=== PATIENT | female | born 1930 | race Caucasian/White ===

== ENCOUNTER → 2016-09-21 | Outpatient (CLI) | payer MEDICARE, MEDICAID | LOC: OD 12:05 | PROVIDERS: ATTEND Nurse Practitioner Acute Care | DX: S40.021A Contusion of right upper arm, initial encounter (principal); W19.XXXA Unspecified fall, initial encounter; M17.11 Unilateral primary osteoarthritis, right knee ==

== ENCOUNTER 2017-03-25 12:57 | Emergency (ER) | payer MEDICARE, MEDICAID ==
--- NOTE | 2017-03-25 13:53 | ER Document Report ---
ED Medical Screen (RME) - General Chief Complaint: Leg Swelling Stated Complaint: FALL LEFT LEG PAIN Time Seen by Provider: 03/25/17 13:38 Notes: Patient is an 86-year-old female, on Eliquis, COPD (on home 2L O2 when needed), presents with left knee pain and lower extremity swelling and bruising after she tripped over her oxygen cord and landed directly on her left knee 5 days ago. She saw the urgent care center and was sent to the ER for further evaluation. PE: Extensive ecchymosis over left lower extremity. Small skin tear over left anterior knee. Strong distal pulses. I have greeted and performed a rapid initial assessment of this patient. A comprehensive ED assessment and evaluation of the patient, analysis of test results and completion of the medical decision making process will be conducted by additional ED providers. TRAVEL OUTSIDE OF THE [place] IN LAST 30 DAYS: No - Related Data Allergies/Adverse Reactions: blue dye [Blue Dye] Allergy (Verified 03/25/17 13:04) Pruritis Past Medical History - Social History Chew tobacco use (# tins/day): No Frequency of alcohol use: None Drug Abuse: None - Past Medical History Cardiac Medical History: Reports: Hx Hypertension Pulmonary Medical History: Reports: Hx Asthma, Hx Bronchitis, Hx COPD - wears oxygen as needed Denies: Hx Pneumonia, Hx Tuberculosis Neurological Medical History: Renal/ Medical History: Denies: Hx Peritoneal Dialysis GI Medical History: Denies: Hx Hiatal Hernia Musculoskeltal Medical History: Reports Hx Arthritis - osteoarthritis, Reports Hx Muscle Weakness Infectious Medical History: Past Surgical History: Reports: Hx Pacemaker - [employer] [id number]. Denies: Hx Hysterectomy, Hx Mastectomy, Hx Open Heart Surgery Physical Exam - Vital signs Vitals: Temp Pulse Resp BP Pulse Ox 98.5 F 67 16 140/80 H 91 L 03/25/17 13:01 03/25/17 13:01 03/25/17 13:01 03/25/17 13:01 03/25/17 13:01 Course - Vital Signs Vital signs: Temp Pulse Resp BP Pulse Ox 98.5 F 67 16 140/80 H 91 L 03/25/17 13:01 03/25/17 13:01 03/25/17 13:01 03/25/17 13:01 03/25/17 13:01
--- NOTE | 2017-03-25 14:41 | RADIOLOGY REPORT (SQ) ---
EXAM DESCRIPTION: KNEE LEFT 3 VIEWS COMPLETED DATE/TIME: 03/25/2017 2:27 pm REASON FOR STUDY: fall COMPARISON: 09/21/2016 NUMBER OF VIEWS: Three views. TECHNIQUE: AP, lateral, and sunrise patella radiographic images acquired of the left knee. LIMITATIONS: None. FINDINGS: MINERALIZATION: Normal. BONES: No acute fracture or dislocation. No worrisome bone lesions. JOINT: There is a tiny posterior patellar spur. There is a small joint effusion. SOFT TISSUES: No soft tissue swelling. No radio-opaque foreign body. OTHER: No other significant finding. IMPRESSION: Mild patellofemoral degenerative joint changes with a small joint effusion. No acute os seous abnormality is present. TECHNICAL DOCUMENTATION: JOB ID: [id number] [employer]- All Rights Reserved
--- NOTE | 2017-03-25 14:42 | RADIOLOGY REPORT (SQ) ---
EXAM DESCRIPTION: TIBIA FIBULA LEFT COMPLETED DATE/TIME: 03/25/2017 2:27 pm REASON FOR STUDY: fall COMPARISON: None. NUMBER OF VIEWS: Two views. TECHNIQUE: Two radiographic images acquired of the left tibia and fibula to include the knee and ank le in at least one projection. LIMITATIONS: None. FINDINGS: MINERALIZATION: Osteopenia. BONES: No acute fracture or dislocation. No worrisome bone lesions. SOFT TISSUES: No obvious swelling or foreign body. OTHER: Screws are present in the distal tibia. IMPRESSION: NEGATIVE STUDY OF THE LEFT TIBIA AND FIBULA. NO RADIOGRAPHIC EVIDENCE OF ACUTE INJURY. TECHNICAL DOCUMENTATION: JOB ID: [id number] [employer]- All Rights Reserved
--- NOTE | 2017-03-25 15:13 | ER Document Report ---
ED General - General Chief Complaint: Leg Swelling Stated Complaint: FALL LEFT LEG PAIN Time Seen by Provider: 03/25/17 13:38 Mode of Arrival: Ambulatory Information source: Patient Notes: 86-year-old female on Eliquis presents with complaints of left leg bruising. Patient notes she fell on her knee and since then has had bruising and the leg is swollen. Patient notes she is able to ambulate denies any significant pain with ambulation. She denies any other concerns TRAVEL OUTSIDE OF THE [place] IN LAST 30 DAYS: No - Related Data Allergies/Adverse Reactions: blue dye [Blue Dye] Allergy (Verified 03/25/17 13:04) Pruritis Past Medical History - Social History Smoking Status: Never Smoker Cigarette use (# per day): No Chew tobacco use (# tins/day): No Smoking Education Provided: No Frequency of alcohol use: None Drug Abuse: None Family History: Reviewed & Not Pertinent Patient has suicidal ideation: No Patient has homicidal ideation: No - Past Medical History Cardiac Medical History: Reports: Hx Hypertension Pulmonary Medical History: Reports: Hx Asthma, Hx Bronchitis, Hx COPD - wears oxygen as needed Denies: Hx Pneumonia, Hx Tuberculosis Neurological Medical History: Renal/ Medical History: Denies: Hx Peritoneal Dialysis GI Medical History: Denies: Hx Hiatal Hernia Musculoskeltal Medical History: Reports Hx Arthritis - osteoarthritis, Reports Hx Muscle Weakness Infectious Medical History: Past Surgical History: Reports: Hx Pacemaker - [employer] [id number]. Denies: Hx Hysterectomy, Hx Mastectomy, Hx Open Heart Surgery Review of Systems - Review of Systems Notes: REVIEW OF SYSTEMS: CONSTITUTIONAL : Denies fever, chills, or sweats. Denies recent illness. EENT: Denies eye, ear, throat, or mouth pain or symptoms. Denies nasal or sinus congestion or discharge. Denies throat, tongue, or mouth swelling or difficulty swallowing. CARDIOVASCULAR: Denies chest pain. Denies palpitations or racing or irregular heart beat. Denies ankle edema. RESPIRATORY: Denies cough, cold, or chest congestion. Denies shortness of breath, difficulty breathing, or wheezing. GASTROINTESTINAL: Denies abdominal pain or distention. Denies nausea, vomiting , or diarrhea. Denies blood in vomitus, stools, or per rectum. Denies black, tarry stools. Denies constipation. GENITOURINARY: Denies difficulty urinating, painful urination, burning, frequency, blood in urine, or discharge. FEMALE GENITOURINARY: Denies vaginal bleeding, heavy or abnormal periods, irregular periods. Denies vaginal discharge or odor. MUSCULOSKELETAL: left knee swelling SKIN: bruising HEMATOLOGIC : Denies easy bruising or bleeding. LYMPHATIC: Denies swollen, enlarged glands. NEUROLOGICAL: Denies confusion or altered mental status. Denies passing out or loss of consciousness. Denies dizziness or lightheadedness. Denies headache. Denies weakness or paralysis or loss of use of either side. Denies problems with gait or speech. Denies sensory loss, numbness, or tingling. Denies seizures. PSYCHIATRIC: Denies anxiety or stress. Denies depression, suicidal ideation, or homicidal ideation. ALL OTHER SYSTEMS REVIEWED AND NEGATIVE. PHYSICAL EXAMINATION: GENERAL: Well-appearing, well-nourished and in no acute distress. HEAD: Atraumatic, normocephalic. EYES: Pupils equal round and reactive to light, extraocular movements intact, conjunctiva are normal. ENT: Nares patent, oropharynx clear without exudates. Moist mucous membranes. NECK: Normal range of motion, supple without lymphadenopathy LUNGS: Breath sounds clear to auscultation bilaterally and equal. No wheezes rales or rhonchi. HEART: Regular rate and rhythm without murmurs ABDOMEN: Soft, nontender, nondistended abdomen. No guarding, no rebound. No masses appreciated. Female : deferred Musculoskeletal: Ecchymosis of the left knee tender in the medial aspect effusion noted NEUROLOGICAL: Cranial nerves grossly intact. Normal speech, normal gait. Normal sensory, motor exams PSYCH: Normal mood, normal affect. SKIN: Ecchymosis from mid thigh to the left foot pulses intact sensation intact motor function intact Dictation was performed using [employer] voice recognition software Physical Exam - Vital signs Vitals: Temp Pulse Resp BP Pulse Ox 98.5 F 67 16 140/80 H 91 L 03/25/17 13:01 03/25/17 13:01 03/25/17 13:01 03/25/17 13:01 03/25/17 13:01 Course - Re-evaluation Re-evalutation: 03/25/17 23:55 X-rays consistent with a small effusion, patient otherwise looks well is in no distress, patient was evaluated and there is no signs of a blood clot in fact the patient's blood is thin and I believe her traumatic injury has caused her this ecchymosis. 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 Patient otherwise is in no distress will be given follow-up very strict return precautions.. After performing a Medical Screening Examination, I estimate there is LOW risk for INTRACRANIAL HEMORRHAGE, UNSTABLE SPINE FRACTURE, CENTRAL CORD SYNDROME, CAUDA EQUINA, THORACIC AORTIC DISSECTION, PNEUMOTHORAX, PERFORATED BOWEL, RUPTURED ABDOMINAL AORTIC ANEURYSM, ACUTE TENDON RUPTURE, COMPARTMENT SYNDROME, or OPEN FRACTURE, thus I consider the discharge disposition reasonable. Also, there is no evidence or peritonitis, sepsis, or toxicity. I have reevaluated this patient multiple times and no significant life threatening changes are noted. The patient and I have discussed the diagnosis and risks, and we agree with discharging home to follow-up with their primary doctor with the understanding that symptoms and presentations can change. We also discussed returning to the Emergency Department immediately if new or worsening symptoms occur. We have discussed the symptoms which are most concerning (e.g., bloody stool, fever, changing or worsening pain, vomiting) that necessitate immediate return. - Vital Signs Vital signs: Temp Pulse Resp BP Pulse Ox 97.7 F 62 20 132/75 H 92 03/25/17 15:52 03/25/17 15:52 03/25/17 15:52 03/25/17 15:52 03/25/17 15:52 - Diagnostic Test Radiology reviewed: Image reviewed, Reports reviewed - Small effusion Discharge - Discharge Clinical Impression: Knee effusion, left Traumatic ecchymosis of left lower leg Qualifiers: Encounter type: initial encounter Qualified Code(s): S80.12XA - Contusion of left lower leg, initial encounter Condition: Stable Disposition: HOME, SELF-CARE Instructions: Knee Effusion ([facility]) Referrals: FARA CADET NP [Primary Care Provider] - Follow up as needed CHRISTI LI MD [ACTIVE STAFF] - Follow up tomorrow
[2017-03-25 15:54] VITALS: BP 132/75
== END 2017-03-25 15:52 | disposition home or self-care (01) ==
LOC: ER 12:57
DX: S80.12XA Contusion of left lower leg, initial encounter (principal); M25.462 Effusion, left knee; W18.30XA Fall on same level, unspecified, initial encounter; I10 Essential (primary) hypertension
CPT/HCPCS: 99283

== ENCOUNTER 2018-08-24 09:06 | Day surgery (SDC) | payer MEDICARE, MEDICAID ==
[~2018-08-24 09:06] MED LIST: CHONDR SU A NA/HYALUR INTRAOC KIT (SURGICARE) ONE; EPINEPHRINE INJ/PF 1 MG/1 ML AMPULE ONE; KETOROLAC TROMETHAMINE 0.45% 4 DROP/0.4 ML DROPERETTE OD PRN; LIDOCAINE 1% INJ-PF (10 MG/ML) 30 ML SDV ONE
[2018-08-24] MEDS: TETRACAINE HCL 0.5% OPH SOLN 0.6 ML DROPERETTE OD PRN ×3 (09:40→10:19)
[2018-08-24] MEDS: TROPICAMIDE 1% OPH SOLN 3 ML OD PRN ×3 (09:41→10:05)
[2018-08-24] MEDS: BESIFLOXACIN HCL 0.6% OPH SUSP 5 ML BOTTLE OD PRN ×4 (09:41→10:46)
[2018-08-24] MEDS: CYCLOPENTOLATE 0.2%/PHENYLEPHRINE 1% OPH SOLN 2 ML OD PRN ×3 (09:41→10:05)
[2018-08-24] MEDS ORDERED: MIDAZOLAM 2 MG/2 ML INJ ONE (09:53)
[2018-08-24] MEDS: TOBRAMYCIN SULFATE/DEXAMETH OPH OINTMENT 3.5 GM ONE ×2 (10:46)
== END 2018-08-24 11:41 | disposition home or self-care (01) ==
LOC: SC 09:06
PROVIDERS: ATTEND Ophthalmology
DX: H25.11 Age-related nuclear cataract, right eye (principal); I25.10 Atherosclerotic heart disease of native coronary artery without angina pectoris; E11.9 Type 2 diabetes mellitus without complications; K21.9 Gastro-esophageal reflux disease without esophagitis; I10 Essential (primary) hypertension; E78.00 Pure hypercholesterolemia, unspecified; J44.9 Chronic obstructive pulmonary disease, unspecified; Z95.0 Presence of cardiac pacemaker; Z79.84 Long term (current) use of oral hypoglycemic drugs; Z79.01 Long term (current) use of anticoagulants; Z79.899 Other long term (current) drug therapy
CPT/HCPCS: 82962; 66984; V2632; J2250; J3490 ×3; A9270; J0171; 142

== ENCOUNTER 2018-09-14 10:23 | Day surgery (SDC) | payer MEDICARE, MEDICAID ==
[~2018-09-14 10:23] MED LIST changes: +BESIFLOXACIN HCL 0.6% OPH SUSP 5 ML BOTTLE OS PRN; -CHONDR SU A NA/HYALUR INTRAOC KIT (SURGICARE) ONE; +CYCLOPENTOLATE 0.2%/PHENYLEPHRINE 1% OPH SOLN 2 ML OS PRN; -EPINEPHRINE INJ/PF 1 MG/1 ML AMPULE ONE; -KETOROLAC TROMETHAMINE 0.45% 4 DROP/0.4 ML DROPERETTE OD PRN; +KETOROLAC TROMETHAMINE 0.45% 4 DROP/0.4 ML DROPERETTE OS PRN; -LIDOCAINE 1% INJ-PF (10 MG/ML) 30 ML SDV ONE; +TETRACAINE HCL 0.5% OPH SOLN 0.6 ML DROPERETTE OS PRN; +TROPICAMIDE 1% OPH SOLN 3 ML OS PRN
[2018-09-14] MEDS ORDERED: MIDAZOLAM 2 MG/2 ML INJ ONE (11:01)
[2018-09-14] MEDS: TROPICAMIDE 1% OPH SOLN 3 ML OS PRN ×3 (11:38→12:00)
[2018-09-14] MEDS: BESIFLOXACIN HCL 0.6% OPH SUSP 5 ML BOTTLE OS PRN ×4 (11:38→12:50)
[2018-09-14] MEDS: CYCLOPENTOLATE 0.2%/PHENYLEPHRINE 1% OPH SOLN 2 ML OS PRN ×3 (11:38→12:00)
[2018-09-14] MEDS: TETRACAINE HCL 0.5% OPH SOLN 0.6 ML DROPERETTE OS PRN ×4 (11:38→12:22)
[2018-09-14] MEDS: LIDOCAINE 1% INJ-PF (10 MG/ML) 30 ML SDV ONE ×2 (12:41)
[2018-09-14] MEDS: CHONDR SU A NA/HYALUR INTRAOC KIT (SURGICARE) ONE ×2 (12:41)
[2018-09-14] MEDS: EPINEPHRINE INJ/PF 1 MG/1 ML AMPULE ONE ×2 (12:41)
[2018-09-14] MEDS: TOBRAMYCIN SULFATE/DEXAMETH OPH OINTMENT 3.5 GM ONE ×2 (12:50)
== END 2018-09-14 13:42 | disposition home or self-care (01) ==
LOC: SC 10:23
PROVIDERS: ATTEND Ophthalmology
DX: H25.12 Age-related nuclear cataract, left eye (principal); Z98.41 Cataract extraction status, right eye; I25.10 Atherosclerotic heart disease of native coronary artery without angina pectoris; E11.9 Type 2 diabetes mellitus without complications; J45.909 Unspecified asthma, uncomplicated; E78.00 Pure hypercholesterolemia, unspecified; I10 Essential (primary) hypertension; Z79.01 Long term (current) use of anticoagulants; Z79.899 Other long term (current) drug therapy; I49.9 Cardiac arrhythmia, unspecified; Z95.0 Presence of cardiac pacemaker
CPT/HCPCS: 66984; 82962; V2632; J2250; J3490 ×3; A9270; J0171; 142

== ENCOUNTER 2019-05-22 20:19 | Emergency (ER) | payer MEDICARE, MEDICAID ==
[2019-05-22 21:01] LABS: APPEARANCE,URINE CLEAR; BILIRUBIN,URINE NEGATIVE (NEGATIVE); COLOR,URINE YELLOW; GLUCOSE, URINE NEGATIVE (NEGATIVE); KETONES,URINE NEGATIVE (NEGATIVE); LEUKOCYTE ESTERASE,URINE NEGATIVE (NEGATIVE); NITRITE,URINE NEGATIVE (NEGATIVE); PROTEIN,URINE 30 mg/dL (NEGATIVE); URINE SPECIFIC GRAVITY 1.019
[2019-05-22 21:02] LABS: ABSOLUTE LYMPHOCYTES (AUTO) 0.8 10^3/uL (0.5-4.7); ABSOLUTE MONOCYTES (AUTO) 0.7 10^3/uL (0.1-1.4); ABSOLUTE NEUT (AUTO) 3.4 10^3/uL (1.7-8.2); BASOPHILS % (AUTO) 0.7 % (0-2); EOSINOPHILS % (AUTO) 0.6 % (0-6); HEMATOCRIT 36.2 % (36.0-47.0); HEMOGLOBIN 11.4 g/dL (12.0-15.5); LYMPHOCYTES % (AUTO) 16.5 % (13-45); MEAN CORPUSCULAR HGB CONC 31.3 g/dL (32.0-36.0); MEAN CORPUSCULAR VOLUME 74 fl (80-97); MONOCYTES % (AUTO) 13.3 % (3-13); RED BLOOD COUNT 4.93 10^6/uL (3.72-5.28); RED CELL DISTRIBUTION WIDTH 18.7 % (11.5-14.0); SEGMENTED NEUTROPHILS % (AUTO) 68.9 % (42-78); TOTAL CELLS COUNTED % (AUTO) 100 %; WHITE BLOOD COUNT 4.9 10^3/uL (4.0-10.5)
[2019-05-22 21:04] LABS: PLATELET COUNT 98 10^3/uL (150-450)
[2019-05-22 21:22] LABS: ALBUMIN 4.1 g/dL (3.5-5.0); ALKALINE PHOSPHATASE 44 U/L (38-126); ANION GAP 8 (5-19); ASPARTATE AMINO TRANSFERASE 30 U/L (14-36); BILIRUBIN,DIRECT 0.3 mg/dL (0.0-0.4); BILIRUBIN,TOTAL 0.7 mg/dL (0.2-1.3); BLOOD UREA NITROGEN 28 mg/dL (7-20); CALCIUM 9.4 mg/dL (8.4-10.2); CARBON DIOXIDE 30 mmol/L (22-30); CHLORIDE 103 mmol/L (98-107); GLUCOSE 93 mg/dL (75-110); TOTAL PROTEIN 7.1 g/dL (6.3-8.2)
--- NOTE | 2019-05-22 22:26 | RADIOLOGY REPORT (SQ) ---
EXAM DESCRIPTION: CT HEAD WITHOUT IV CONTRAST COMPLETED DATE/TME: 05/22/2019 00:00 CLINICAL HISTORY: 89 years, Female, ams COMPARISON: None. TECHNIQUE: Noncontrast CT of head was performed. Coronal and sagittal reformations were created. Images stored on PACS. All CT scanners at this facility use dose modulation, iterative reconstruction, and/or weight based dosing when appropriate to reduce radiation dose to as low as reasonably achievable (ALARA). [facility]: Dose Right [facility]: CareDose [facility]: Dose Right [facility]: Teradose 4D [facility]: [employer] LIMITATIONS: None. FINDINGS: Evaluation of the brain parenchyma reveals mild periventricular and patchy subcortical white matter low attenuation. A more focal area of hypodensity is noted about the anterior limb of the left internal capsule. This presumably corresponds to a remote lacunar infarct. Ventricles and sulcal spaces are mildly enlarged. No acute intracranial hemorrhage, mass effect, or extra-axial fluid is seen. Rounded opacities are noted about both maxillary antra, indicating mucous retention cysts and/or inflammatory polyps. There is mild opacity within the right ethmoidal air cells posteriorly. Mastoid air cells are clear. Calcifications are evident about the bilateral parasellar carotid arteries. No depressed skull fractures. IMPRESSION: No acute intracranial abnormality. Mild chronic microvascular ischemic change with generalized atrophy. Suspect remote lacunar infarct within the anterior limb of the left internal capsule. TECHNICAL DOCUMENTATION: Quality ID # [id number]: Final reports with documentation of one or more dose reduction techniques (e.g., Automated exposure control, adjustment of the mA and/or kV according to patient size, use of iterative reconstruction technique) copyright 2011 [employer]- All Rights Reserved
--- NOTE | 2019-05-22 23:12 | ER Document Report ---
ED General - General Chief Complaint: Altered Mental Status Stated Complaint: ALTERED MENTAL STATUS Time Seen by Provider: 05/22/19 23:08 Primary Care Provider: FARA CADET NP [Primary Care Provider] - Follow up as needed Mode of Arrival: Ambulatory Information source: Patient, Relative TRAVEL OUTSIDE OF THE [place] IN LAST 30 DAYS: No - HPI Onset: Other - over the last month Onset/Duration: Gradual Quality of pain: No pain Severity: Moderate Pain Level: Denies Associated symptoms: None Exacerbated by: Denies Relieved by: Denies Similar symptoms previously: No Recently seen / treated by doctor: No Notes: 89 year old female with a history of HTN who has a pacemaker brought to the ER for worsening confusion over the last month. The patient has no complaints when she is asked herself and the only reason she is in the ER is because her family wanted her to be seen. The patient and family deny recent head trauma or falls. The patient's family feel the patient's mental status has worsened even more in the last day or two. - Related Data Allergies/Adverse Reactions: blue dye [Blue Dye] Allergy (Verified 09/09/18 10:11) Pruritis Home Medications: Lasix. Eliquis. Potassium. Pantoprazole. Lisinopril Past Medical History - General Information source: Patient, Relative Cannot obtain history due to: Altered mental status - Social History Smoking Status: Never Smoker Frequency of alcohol use: None Drug Abuse: None Family History: Reviewed & Not Pertinent Patient has suicidal ideation: No Patient has homicidal ideation: No - Past Medical History Cardiac Medical History: Reports: Hx Hypertension Denies: Hx Heart Attack Pulmonary Medical History: Reports: Hx Asthma - CHF, Hx Bronchitis, Hx COPD - wears oxygen as needed Denies: Hx Pneumonia, Hx Tuberculosis Neurological Medical History: Denies: Hx Cerebrovascular Accident, Hx Seizures Renal/ Medical History: Denies: Hx Peritoneal Dialysis GI Medical History: Denies: Hx Hepatitis, Hx Hiatal Hernia, Hx Ulcer Musculoskeletal Medical History: Reports Hx Arthritis - osteoarthritis, Reports Hx Muscle Weakness Infectious Medical History: Denies: Hx Hepatitis Past Surgical History: Reports: Hx Pacemaker. Denies: Hx Hysterectomy, Hx Mastectomy, Hx Open Heart Surgery Physical Exam - Vital signs Vitals: Resp 05/22/19 20:24 - Notes Notes: GENERAL: Well-appearing, well-nourished and in no acute distress. HEAD: Atraumatic, normocephalic. EYES: Pupils equal round and reactive to light, extraocular movements intact, sclera anicteric, conjunctiva are normal. ENT: TMs normal, nares patent, oropharynx clear without exudates. Moist mucous membranes. NECK: Normal range of motion, supple without lymphadenopathy or JVD. LUNGS: Breath sounds clear to auscultation bilaterally and equal. No wheezes rales or rhonchi. HEART: Regular rate and rhythm without murmurs, rubs or gallops. ABDOMEN: Soft, nontender, normoactive bowel sounds. No guarding, no rebound. No masses appreciated. EXTREMITIES: Normal range of motion, no pitting or edema. No clubbing or cyanosis. NEUROLOGICAL: Cranial nerves II through XII grossly intact. Normal speech, n ormal gait. Patient is somewhat confused and is only oriented to person and plan. PSYCH: Normal mood, normal affect. SKIN: Warm, Dry, normal turgor, no rashes or lesions noted. Course - Re-evaluation Re-evalutation: 05/23/19 02:44 The patient's family brought the patient to the ER for evaluation of 1 month of worsening confusion. The patient likely has vascular dementia as a cause of her confusion. Blood work, UA, Chest Xray, CT Head all are unremarkable. Patient and family told to follow up with their PCP for further work up and treatment of likely Dementia. The patient's blood pressure is elevated here in the ER. The patient is on BP meds at home. Patient given hydralazine in the ER for acute on chronic hypertension. Family told to have the patient follow up with her PCP for better management of her HTN 05/23/19 02:51 - Vital Signs Vital signs: Temp Pulse Resp BP Pulse Ox 100.1 F 20 196/80 H 97 05/22/19 20:40 05/23/19 02:01 05/23/19 02:01 05/23/19 02:01 - Laboratory Result Diagrams: 05/22/19 20:35 05/22/19 20:35 Laboratory results interpreted by me: 05/22/19 05/22/19 05/22/19 20:35 20:35 20:35 Hgb 11.4 L MCV 74 L MCH 23.0 L MCHC 31.3 L RDW 18.7 H Plt Count 98 L [place] % (Auto) 13.3 H BUN 28 H Est GFR ( Amer) 53 L Est GFR (MDRD) Non-Af 44 L TSH Urine Protein 30 H Urine Urobilinogen 4.0 H 05/22/19 20:35 Hgb MCV MCH MCHC RDW Plt Count [place] % (Auto) BUN Est GFR ( Amer) Est GFR (MDRD) Non-Af TSH 0.26 L Urine Protein Urine Urobilinogen Discharge - Discharge Clinical Impression: Dementia Qualifiers: Dementia type: unspecified type Dementia behavioral disturbance: without behavioral disturbance Qualified Code(s): F03.90 - Unspecified dementia without behavioral disturbance Hypertension Qualifiers: Hypertension type: essential hypertension Qualified Code(s): I10 - Essential (primary) hypertension Condition: Stable Disposition: HOME, SELF-CARE Instructions: Dementia ([facility]) Additional Instructions: Follow up with your primary care doctor as soon as you can and discuss with him/her your confusion, hypertension, and your ER visit. Tell your doctor you had blood work, a Urine Analysis, a Chest Xray, and a Head CT Scan all of which showed no acute abnormalities. Referrals: FARA CADET NP [Primary Care Provider] - Follow up as needed
--- NOTE | 2019-05-23 01:20 | RADIOLOGY REPORT (SQ) ---
EXAM DESCRIPTION: [facility]: XR CHEST 2 VIEWS Views: 2 CLINICAL HISTORY: 89 years Female, rule out pneumonia COMPARISON: 2015 FINDINGS: There is mild central interstitial prominence, but no focal infiltrate. No pneumothorax or pleural effusion. Pacemaker is again noted, with intact leads. Mild aortic calcification. No superior mediastinal widening or shift. Heart size is at the upper limits of normal. Bony structures are unremarkable for age. IMPRESSION: 1. Mild pulmonary vascular congestion 2. No focal infiltrates 3. Pacemaker
[2019-05-23 02:35] VITALS: BP 196/80
[2019-05-23] MEDS ORDERED: HYDRALAZINE HCL INJ/PF 20 MG/1 ML SDV IV ONE (02:47)
--- NOTE | 2019-05-23 11:21 | EKG REPORT ---
SEVERITY:- ABNORMAL ECG - AFIB/FLUTTER AND VENTRICULAR-PACED RHYTHM : Confirmed by: Diane Montejo MD 23-May-2019 11:20:48
== END 2019-05-23 03:26 | disposition home or self-care (01) ==
LOC: ER 20:19
DX: F03.90 Unspecified dementia, unspecified severity, without behavioral disturbance, psychotic disturbance, mood disturbance, and anxiety (principal); I10 Essential (primary) hypertension; J44.9 Chronic obstructive pulmonary disease, unspecified; I50.9 Heart failure, unspecified; Z99.81 Dependence on supplemental oxygen
CPT/HCPCS: 93005; 99285; 96374; 36415; 84443; 85025; 80053; 81001; 71046; 70450; 93010; J0360

== ENCOUNTER 2019-10-09 13:55 | Emergency (ER) | payer MEDICARE, MEDICAID ==
--- NOTE | 2019-10-09 14:09 | ER Document Report ---
ED Medical Screen (RME) - General Chief Complaint: Leg Swelling Stated Complaint: LEG SWELLING Time Seen by Provider: 10/09/19 14:04 Primary Care Provider: ZAINA DONIS PA-C [Primary Care Provider] - Follow up as needed Mode of Arrival: Wheelchair Information source: Patient, Relative - Daughter Notes: 89-year-old female patient with history of dementia and hearing impairment presents to the emergency department with her daughter. Patient has edema and weeping to her bilateral lower extremities. She also has generally not felt well and had some confusion yesterday. The daughter also reports she fell about 2 weeks ago and hit her head, she did not get seen for this as they were too scared to come to the emergency department due to COVID-19. Patient has not had any travel, has not had any exposure to any COVID-19 positive persons. Swelling noted to bilateral lower extremities, areas of erythema noted, weeping noted. I have greeted and performed a rapid initial assessment of this patient. A comprehensive ED assessment and evaluation of the patient, analysis of test results and completion of the medical decision making process will be conducted by additional ED providers. I have specifically instructed the patient or family members with the patient to immediately return to any nursing staff should anything change in the patient's condition or with their chief complaint. TRAVEL OUTSIDE OF THE [place] IN LAST 30 DAYS: No - Related Data Allergies/Adverse Reactions: blue dye [Blue Dye] Allergy (Verified 09/09/18 10:11) Pruritis Past Medical History - Past Medical History Cardiac Medical History: Reports: Hx Hypertension Denies: Hx Heart Attack Pulmonary Medical History: Reports: Hx Asthma - CHF, Hx Bronchitis, Hx COPD - wears oxygen as needed Denies: Hx Pneumonia, Hx Tuberculosis Neurological Medical History: Denies: Hx Cerebrovascular Accident, Hx Seizures Renal/ Medical History: Denies: Hx Peritoneal Dialysis GI Medical History: Denies: Hx Hepatitis, Hx Hiatal Hernia, Hx Ulcer Musculoskeltal Medical History: Reports Hx Arthritis - osteoarthritis, Reports Hx Muscle Weakness Infectious Medical History: Denies: Hx Hepatitis Past Surgical History: Reports: Hx Pacemaker. Denies: Hx Hysterectomy, Hx Mastectomy, Hx Open Heart Surgery Physical Exam - Vital signs Vitals: Temp Pulse Resp BP Pulse Ox 98.3 F 64 18 187/94 H 94 10/09/19 14:01 10/09/19 14:01 10/09/19 14:01 10/09/19 14:01 10/09/19 14:01 Course - Vital Signs Vital signs: Temp Pulse Resp BP Pulse Ox 98.3 F 64 18 187/94 H 94 10/09/19 14:01 10/09/19 14:01 10/09/19 14:01 10/09/19 14:01 10/09/19 14:01 Doctor's Discharge - Discharge Referrals: ZAINA DONIS PA-C [Primary Care Provider] - Follow up as needed
[2019-10-09] MEDS ORDERED: FUROSEMIDE INJ/PF 40 MG/4 ML SDV IV ONE (14:29)
[2019-10-09 14:53] LABS: APPEARANCE,URINE CLEAR; BILIRUBIN,URINE NEGATIVE (NEGATIVE); COLOR,URINE YELLOW; GLUCOSE, URINE NEGATIVE (NEGATIVE); KETONES,URINE NEGATIVE (NEGATIVE); LEUKOCYTE ESTERASE,URINE NEGATIVE (NEGATIVE); NITRITE,URINE NEGATIVE (NEGATIVE); PROTEIN,URINE 30 mg/dL (NEGATIVE); URINE SPECIFIC GRAVITY 1.013
--- NOTE | 2019-10-09 14:55 | RADIOLOGY REPORT (SQ) ---
EXAM DESCRIPTION: CHEST SINGLE VIEW IMAGES COMPLETED DATE/TIME: 10/09/2019 2:36 pm REASON FOR STUDY: peripheral edema, not feeling well COMPARISON: PA and lateral views of the chest from 05/23/2019. EXAM PARAMETERS: NUMBER OF VIEWS: One view. TECHNIQUE: An AP view of the chest was obtained. RADIATION DOSE: NA LIMITATIONS: None. FINDINGS: LUNGS AND PLEURA: The right lateral costophrenic sulcus is blunted. There is no consolida tion or pneumothorax. MEDIASTINUM AND HILAR STRUCTURES: No mediastinal or hilar contour abnormality. HEART AND VASCULAR STRUCTURES: Unchanged cardiomegaly. The pulmonary vasculature is within normal li mits given the low inspiratory lung volumes. BONES: Osteoarthrosis of the bilateral glenohumeral joints. HARDWARE: Intact left subclavian vein approach transvenous pacemaker. OTHER: No other finding. IMPRESSION: Cardiomegaly and trace left pleural effusion. TECHNICAL DOCUMENTATION: JOB ID: [id number] 2010 [employer]- All Rights Reserved Reading location - IP/workstation name: [email or web address]
[2019-10-09 15:05] LABS: ABSOLUTE BASOPHILS # (AUTO) 0.1 10^3/uL (0.0-0.2); ABSOLUTE LYMPHOCYTES (AUTO) 0.9 10^3/uL (0.5-4.7); ABSOLUTE MONOCYTES (AUTO) 0.8 10^3/uL (0.1-1.4); ABSOLUTE NEUT (AUTO) 6.7 10^3/uL (1.7-8.2); BASOPHILS % (AUTO) 0.8 % (0-2); EOSINOPHILS % (AUTO) 0.2 % (0-6); HEMATOCRIT 33.1 % (36.0-47.0); HEMOGLOBIN 10.2 g/dL (12.0-15.5); LYMPHOCYTES % (AUTO) 10.5 % (13-45); MEAN CORPUSCULAR HEMOGLOBIN 22.1 pg (27.0-33.4); MEAN CORPUSCULAR HGB CONC 30.7 g/dL (32.0-36.0); MEAN CORPUSCULAR VOLUME 72 fl (80-97); MONOCYTES % (AUTO) 9.7 % (3-13); PLATELET COUNT 120 10^3/uL (150-450); RED CELL DISTRIBUTION WIDTH 17.4 % (11.5-14.0); SEGMENTED NEUTROPHILS % (AUTO) 78.8 % (42-78); TOTAL CELLS COUNTED % (AUTO) 100 %; WHITE BLOOD COUNT 8.5 10^3/uL (4.0-10.5)
--- NOTE | 2019-10-09 15:07 | ER Document Report ---
ED Extremity Problem, Lower - General Chief Complaint: Leg Swelling Stated Complaint: LEG SWELLING Time Seen by Provider: 10/09/19 14:04 Primary Care Provider: ZAINA DONIS PA-C [COMMUNITY BASED STAFF] - Follow up as needed Mode of Arrival: Wheelchair Information source: Patient, Relative TRAVEL OUTSIDE OF THE [place] IN LAST 30 DAYS: No - HPI Notes: Patient is brought in by family for leg and face swelling. This is been going on for 1 to 2 days. Nothing makes it better or worse. There is no significant radiation of the symptoms. Symptoms have been constant. She states that her legs have been weeping clear fluid and sometimes blood. Family states that they noticed today the face is also started to swell. She is also had some weakness and shortness of breath especially with exertion. No chest pain. No abdominal pain. No vomiting diarrhea. No cough or fevers. - Related Data Allergies/Adverse Reactions: blue dye [Blue Dye] Allergy (Verified 09/09/18 10:11) Pruritis Past Medical History - General Information source: Patient, Relative - Daughter - Social History Smoking Status: Never Smoker Frequency of alcohol use: None Drug Abuse: None Family History: Reviewed & Not Pertinent Patient has homicidal ideation: No - Past Medical History Cardiac Medical History: Reports: Hx Hypertension Denies: Hx Heart Attack Pulmonary Medical History: Reports: Hx Asthma - CHF, Hx Bronchitis, Hx COPD - wears oxygen as needed Denies: Hx Pneumonia, Hx Tuberculosis Neurological Medical History: Denies: Hx Cerebrovascular Accident, Hx Seizures Renal/ Medical History: Denies: Hx Peritoneal Dialysis GI Medical History: Denies: Hx Hepatitis, Hx Hiatal Hernia, Hx Ulcer Musculoskeletal Medical History: Reports Hx Arthritis - osteoarthritis, Reports Hx Muscle Weakness Infectious Medical History: Denies: Hx Hepatitis Past Surgical History: Reports: Hx Pacemaker. Denies: Hx Hysterectomy, Hx Mastectomy, Hx Open Heart Surgery Review of Systems - Review of Systems -: Yes ROS unobtainable due to patient's medical condition - Review of symptoms are not obtainable due to patient's chronic dementia Physical Exam - Vital signs Vitals: Temp Pulse Resp BP Pulse Ox 98.3 F 64 18 187/94 H 94 10/09/19 14:01 10/09/19 14:01 10/09/19 14:01 10/09/19 14:01 10/09/19 14:01 Interpretation: Hypertensive - General General appearance: Appears well, Alert In distress: None - HEENT Head: Normocephalic, Atraumatic Eyes: Normal Pupils: PERRL - Respiratory Respiratory status: No respiratory distress Chest status: Nontender Breath sounds: Decreased air movement Chest palpation: Normal - Cardiovascular Rhythm: Regular Heart sounds: Normal auscultation Murmur: No - Abdominal Inspection: Normal Distension: No distension Bowel sounds: Normal Tenderness: Nontender Organomegaly: No organomegaly - Back Back: Normal, Nontender - Extremities General upper extremity: Normal inspection, Nontender, Normal color, Normal ROM, Normal temperature General lower extremity: Tender, Edema - Bilateral lower extremities 2+, Normal weight bearing. No: Prakash's sign - Neurological Cognition: Confused Orientation: Disoriented to time Clayton Coma Scale Eye Opening: Spontaneous Debra Coma Scale Verbal: Confused Clayton Coma Scale Motor: Obeys Commands Clayton Coma Scale Total: 14 Speech: Normal - Psychological Associated symptoms: Normal affect, Normal mood - Skin Skin Temperature: Warm Skin Moisture: Dry Skin Color: Normal Course - Re-evaluation Re-evalutation: 10/09/19 16:30 Patient presents with leg swelling and also facial swelling per family. Laboratories are consistent with some mild to moderate fluid overload secondary to congestive heart failure. I do not feel that it is to the degree the patient requires admission to the hospital. I will give the patient a dose of IV Lasix and send her home with instructions to increase her Lasix and follow-up with her family physician in the next 1 to 2 days. Patient is otherwise stable. She is vital signs that are stable. She has no labored breathing. During during this COVID pandemic, It seems most prudent to have the patient try increasing her diuretic at home and following up with her primary care physician. - Vital Signs Vital signs: Temp Pulse Resp BP Pulse Ox 98.3 F 64 16 162/87 H 92 10/09/19 14:05 10/09/19 14:01 10/09/19 15:01 10/09/19 15:01 10/09/19 15:01 - Laboratory Result Diagrams: 10/09/19 14:45 10/09/19 14:45 Laboratory results interpreted by me: 10/09/19 10/09/19 10/09/19 14:24 14:45 14:45 Hgb 10.2 L Hct 33.1 L MCV 72 L MCH 22.1 L MCHC 30.7 L RDW 17.4 H Plt Count 120 L Lymph % (Auto) 10.5 L Seg Neutrophils % 78.8 H BUN 26 H Est GFR ( Amer) 53 L Est GFR (MDRD) Non-Af 44 L Glucose 122 H NT-Pro-B Natriuret Pep Urine Protein 30 H Urine Urobilinogen 4.0 H 10/09/19 14:45 Hgb Hct MCV MCH MCHC RDW Plt Count Lymph % (Auto) Seg Neutrophils % BUN Est GFR ( Amer) Est GFR (MDRD) Non-Af Glucose NT-Pro-B Natriuret Pep 2280 H Urine Protein Urine Urobilinogen - Diagnostic Test Radiology reviewed: Image reviewed, Reports reviewed - EKG Interpretation by Me Rate: Normal - 60 Rhythm: Other - paced When compared to previous EKG there are: No significant change Discharge - Discharge Clinical Impression: Acute exacerbation of congestive heart failure Qualifiers: Heart failure type: diastolic Qualified Code(s): I50.33 - Acute on chronic diastolic (congestive) heart failure Condition: Stable Disposition: HOME, SELF-CARE Instructions: Congestive Heart Failure (OM) Additional Instructions: Please limit your fluid and salt intake. Please increase your Lasix to 60 mg/day. This would be 1-1/2 tablets/day. Please call your primary care provider first thing in the morning to arrange follow-up. A telehealth visit would be okay. If you have persistent trouble with constipation you may use the GoLYTELY. You may use kerlex and david bandage to wrap your legs. Prescriptions: Peg 3350/Na Sulf,Bicarb,Cl/KCl [Golytely Solution 4000 ml] 4,000 ml PO DAILY #1 bottle Referrals: ZAINA DONIS PA-C [COMMUNITY BASED STAFF] - Follow up tomorrow
[2019-10-09 15:27] LABS: ALBUMIN 4.1 g/dL (3.5-5.0); ALKALINE PHOSPHATASE 48 U/L (38-126); ANION GAP 9 (5-19); ASPARTATE AMINO TRANSFERASE 30 U/L (14-36); BILIRUBIN,DIRECT 0.4 mg/dL (0.0-0.4); BILIRUBIN,TOTAL 1.3 mg/dL (0.2-1.3); BLOOD UREA NITROGEN 26 mg/dL (7-20); CALCIUM 8.8 mg/dL (8.4-10.2); CARBON DIOXIDE 26 mmol/L (22-30); CHLORIDE 102 mmol/L (98-107); GLUCOSE 122 mg/dL (75-110); POTASSIUM 4.5 mmol/L (3.6-5.0); TOTAL PROTEIN 6.7 g/dL (6.3-8.2)
[2019-10-09 15:37] LABS: NT PRO BNP 2280 pg/mL (<450)
[2019-10-09 15:38] LABS: TROPONIN I < 0.012 ng/mL
[2019-10-09 16:46] VITALS: BP 180/92
--- NOTE | 2019-10-09 22:33 | EKG REPORT ---
SEVERITY:- ABNORMAL ECG - VENTRICULAR-PACED COMPLEXES A FIB : Confirmed by: Loli Ponce 09-Oct-2019 22:32:47
== END 2019-10-09 16:54 | disposition home or self-care (01) ==
LOC: ER 13:55
DX: I50.33 Acute on chronic diastolic (congestive) heart failure (principal); I11.0 Hypertensive heart disease with heart failure; M79.89 Other specified soft tissue disorders; Z95.0 Presence of cardiac pacemaker
CPT/HCPCS: 93005; 99284; 96374; 36415; 87086; 85025; 80053; 81001; 84484; 83880; 71045; 93010; J1940; 87088